=== PATIENT | male | born 1965 | race Caucasian/White ===

== ENCOUNTER 2017-11-29 22:15 | Inpatient (IN) | payer OTHER ==
[~2017-11-29] VITALS: Ht 167.6 cm; Wt 54.4 kg
[2017-12-03] MEDS ORDERED: ULTRACET PO (07:44)
[2017-12-03] MEDS ORDERED: POLY119PG PO (07:44)
== END 2017-12-03 09:13 | disposition home or self-care (01) | DRG 389 ==
LOC: SURH 22:15
PROVIDERS: Surgery
PROC: 05H633Z Insertion of Infusion Device into Left Subclavian Vein, Percutaneous Approach (ICD-10-PCS; 2017-12-02)
PROC: 0JH63WZ Insertion of Totally Implantable Vascular Access Device into Chest Subcutaneous Tissue and Fascia, Percutaneous Approach (ICD-10-PCS; principal; 2017-12-02 03:00)
DX: K56.690 Other partial intestinal obstruction (principal); K92.2 Gastrointestinal hemorrhage, unspecified; C20 Malignant neoplasm of rectum; E11.9 Type 2 diabetes mellitus without complications; D50.0 Iron deficiency anemia secondary to blood loss (chronic)
CPT/HCPCS: 72196